=== PATIENT | male | born 1995 | race Caucasian/White ===

== ENCOUNTER 2017-10-16 10:35 | Emergency (ER) | payer SELFPAY | END 2017-10-16 11:25 | disposition home or self-care (01) | LOC: NAV ERS 10:35 | DX: Z04.1 Encounter for examination and observation following transport accident (principal); Z02.89 Encounter for other administrative examinations; J45.909 Unspecified asthma, uncomplicated; F90.9 Attention-deficit hyperactivity disorder, unspecified type; F17.210 Nicotine dependence, cigarettes, uncomplicated | CPT/HCPCS: 99283 ==